=== PATIENT | male | born 1960 | race Hispanic/Latino ===

== ENCOUNTER → 2020-08-05 | Outpatient (CLI) | payer OTHER ==
--- NOTE | 2020-08-05 09:38 | Diagnostic Imaging Report ---
EXAMINATION: CHEST 2 VIEWS INDICATION: Dextrocardia, shortness of breath COMPARISON: None FINDINGS: LINES/TUBES:None LUNGS:The right lung is well-inflated. Left lung volume is low. Prominent elevation of left diaphragm. PLEURA:No pleural effusion or pneumothorax. MEDIASTINUM:Rightward orientation of the cardiac apex compatible with provided history of dextrocardia. BONES/SOFT TISSUES:No acute osseous injury. ABDOMEN:No free air under the diaphragm. IMPRESSION: No focal pneumonia or pulmonary edema. Prominent left hemidiaphragmatic elevation. Rightward orientation of the cardiac apex compatible with provided history of dextrocardia. Signed by: Hayder Arshad MD on 08/05/2020 9:34 AM
== END ==
LOC: RAD 09:09
PROVIDERS: ATTEND Internal Medicine Interventional Cardiology
DX: I20.0 Unstable angina (principal); Q24.0 Dextrocardia
CPT/HCPCS: 71046

== ENCOUNTER 2020-09-06 10:59 | Emergency (ER) | payer OTHER ==
[~2020-09-06] VITALS: Ht 162.6 cm; Wt 103.9 kg
[2020-09-06] MEDS ORDERED: METFORMIN HCL1000 MG PO (11:21)
[2020-09-06] MEDS ORDERED: LOW DOSE ASPIRI81 MG PEG (11:21)
[2020-09-06] MEDS ORDERED: LIDOCAINE1 EACH TOP (11:21)
[2020-09-06] MEDS ORDERED: PRAVASTATIN SOD10 MG PO (11:21)
[2020-09-06] MEDS ORDERED: ENALAPRIL MALE2.5 MG PO (11:21)
--- NOTE | 2020-09-06 11:26 | Emergency Department Note ---
History of Present Illnes History of Present Illness Chief Complaint: Back Pain History of Present Illness This is a 60 year old male . Historian: Patient Arrival Mode: Car Past Medical/Family History Physician Review I have reviewed the patient's past medical and family history. Any updates have been documented here. Past Medical History Recent Fever: No Clinical Suspicion of Infectio: No New/Unexplained Change in Ment: No Past Medical History: Hypertension, Diabetes, Chronic Back Pain Past Surgical History: None Social History Physically hurt or threatened: No Review of Systems Review of Systems Constitutional: Reports no symptoms EENTM: Reports no symptoms Cardiovascular: Reports no symptoms Respiratory: Reports no symptoms Gastrointestinal: Reports no symptoms Genitourinary: Reports pain (L flank pain) Musculoskeletal: Reports no symptoms Integumentary: Reports no symptoms Neurological: Reports no symptoms Psychological: Reports no symptoms Endocrine: Reports no symptoms Hematological/Lymphatic: Reports no symptoms Physical Exam Related Data Allergies: Coded Allergies: No Known Allergies (Unverified , 09/06/20) Triage Vital Signs Vital Signs Date Time Temp Pulse Resp B/P (MAP) Pulse Ox O2 Delivery O2 Flow Rate FiO2 09/06/20 11:12 98.5 77 18 144/78 96 Room Air Vital signs reviewed: Yes Physical Exam CONSTITUTIONAL Constitutional: Present well-developed, Present well-nourished HENT HENT: Present normocephalic, Present atraumatic, Present oropharynx clear/moist, Present nose normal HENT L/R: Present left ext ear normal, Present right ext ear normal EYES Eyes: Reports PERRL, Reports conjunctivae normal NECK Neck: Present ROM normal PULMONARY Pulmonary: Present effort normal, Present breath sounds normal CARDIOVASCULAR Cardiovascular: Present regular rhythm, Present heart sounds normal, Present capillary refill normal, Present normal rate GASTROINTESTINAL Abdominal: Present soft, Present left CVA tenderness, Present other (LLQ) GENITOURINARY Genitourinary: Present exam deferred SKIN Skin: Present warm, Present dry MUSCULOSKELETAL Musculoskeletal: Present ROM normal NEUROLOGICAL Neurological: Present alert, Present oriented x 3, Present no gross motor or sensory deficits PSYCHOLOGICAL Psychological: Present mood/affect normal, Present judgement normal Assessment & Plan Reassessment Reassessment time: 12:43 Reassessment Pain very much improved Assessment & Plan Final Impression: (1) Left flank pain Depart Disposition: HOME, SELF-CARE Last Vital Signs Date Time Temp Pulse Resp B/P (MAP) Pulse Ox O2 Delivery O2 Flow Rate FiO2 09/06/20 11:12 98.5 77 18 144/78 96 Room Air Home Meds Reported Medications Aspirin (LOW DOSE ASPIRIN EC) 81 Mg Tablet.dr, 81 MG PEG DAILY 09/06/20 Pravastatin Sodium (PRAVASTATIN SODIUM) 10 Mg Tablet, 10 MG PO DAILY 09/06/20 Enalapril Maleate (ENALAPRIL MALEATE) 2.5 Mg Tablet, 3 TAB PO DAILY 09/06/20 Metformin Hcl (METFORMIN HCL) 1,000 Mg Tablet, 1000 MG PO DAILY 09/06/20 Lidocaine (Lidocaine) 1 Each Adh..patch, 1 PATCH TOP DAILY 09/06/20 EDEN TAYLOR DO Sep 06, 2020 11:26
[2020-09-06] MEDS ORDERED: KETOROLAC TROMETHAMINE 60 MG/2 ML VIAL IM ONE (11:30)
--- OUTSIDE RECORDS SUMMARY | 2020-09-06 11:34 | XMS REPORT | Continuity of Care Document ---
Author Author [facility] t Organization [facility] Address [address] [place] [address] Phone Unavailable Care Team Providers Care Enterprise Infrastructure Architect Name Role Phone YONI VERGARA Attphycamacho Unavailable Payers Payer Name Policy Type Policy Number Effective Date Expiration Date S ource Problems This patient has no known problems. Allergies, Adverse Reactions, Alerts Allergy Name Allergy Type Status Severity Reaction(s) Onset Date Inacti ve Date Treating Clinician Comments Source No Known Allergies DA Active U 2017-12-09 00:00:00 [facility] Medications This patient has no known medications. Procedures This patient has no known procedures. Results Test Description Test Time Test Comments Results Result Comments Source CHEST 2 VIEWS 2020-08-05 09:33:00 [facility] [address] [place] [address] Patient Name: JAGDISH SINGH JR MR #: [id number] : 1960 Age/Sex: 60/M Req #: [id number] Adm Physician: Ordered by: YONI VERGARA MD Report #: [id number] Location: [facility] Room/Bed: Procedure: [id number] DX/CHEST 2 VIEWS Exam Date: 08/05/20 Exam Time: 919 REPORT STATUS: Signed EXAMINATION: CHEST 2 VIEWS INDICATION: Dextrocardia, shortness of breath COMPARISON: None FINDINGS: LINES/TUBES:None LUNGS:The right lung is well-inflated. Left lung volume is low. Prominent elevation of left diaphragm. PLEURA:No pleural effusion or pneumothorax. MEDIASTINUM:Rightward orientation of the cardiac apex compatible with provided history of dextrocardia. BONES/SOFT TISSUES:No acute osseous injury. ABDOMEN:No free air under the diaphragm. IMPRESSION: No focal pneumonia or pulmonary edema. Prominent left hemidiaphragmatic elevation. Rightward orientation of the cardiac apex compatible with provided history of dextrocardia. Signed by: Mack Webster MD on 08/05/2020 9:34 AM Dictated By: MACK WEBSTER MD 3 Transcribed By: CHRIS on 08/05/20933 COPY TO: YONI VERGARA MD - CT ABD PELVIS W/O CONT 2019-05-04 22:10:00 N carlito: JAGDISH SINGH [facility] : 1960 Age/S: 58 / M [address] [facility] Unit #: [id number] Loc: [place] [address] Phys: Sheila Astorga MD Acct: [id number] Dis Date: Status: REG ER PHONE #: [phone] Exam Date: 05/04/2019 220 FAX #: [phone] Reason: LEFT FLANK PAIN EXAMS: CPT CODE: [id number] CT ABD PELVIS W/O CONT 28515 REASON FOR EXAM: LEFT FLANK PAIN EXAM ORDER DATE: 05/04/2019 9:24 PM Ordering M.DYousuf: Sheila Astorga MD PROCEDURE: - CT ABD PELVIS W/O CONT COMPARISON: FINDINGS: CT images of the abdomen and pelvis were obtained without IV and without oral contrast at 5mm. Dose modulation, iterative reconstruction, and/or weight based adjustment of the MA/KV was utilized to reduce the radiation dose to as low as reasonably achievable. The liver, spleen, and pancreas are grossly within normal limits. The gallbladder is partially contracted with small stones. The kidneys are within normal limits. The urinary bladder is unremarkable. The colon, small bowel, and stomach are within normal limits without evidence of obstruction. The appendix was not seen No evidence of free air or free fluid. IMPRESSION: Small ventral hernia slightly superior to the umbilicus with herniation of mesenteric fat and small bowel in the hernia sac. 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 Cholelithiasis. 1 cm lesion in the right lung base suggestive of noncalcified granuloma at 2210 Reported and signed by: Aguilar Dawson M.D. CC: Technologist:SHERRILL COELHO RT(R),CT CTDI: DLP: Trnscb Date/Time: 05/04/2019 (2209) [email or web address] Orig Print D/T: S: 05/04/2019 (9469) PAGE 1 Signed Report BASIC METABOLIC PANEL 2019-05-04 22:07:00 Test Item SODIUM (test code = NA) 136 mmol/L 135-148 N POTASSIUM (test code = K) 5.3 mmol/L 3.5-5.1 H CHLORIDE (test code = CL) 98 mmol/L 101-109 L CARBON DIOXIDE (test code = CO2) 35.7 mmol/L 21-32 H ANION GAP (test code = GAP) 8 mmol/L 10-20 L GLUCOSE (test code = GLU) 209 mg/dL 74-106 H BLOOD UREA NITROGEN (test code = BUN) 19 mg/dL 3-21 N GLOMERULAR FILTRATION RATE (test code = GFR) > 60 mL/min >=60 Estimated GFR by using Modified MDRD formula.Chronic kidney disease is defined as either kidney damageor GFR <60 mL/min/1.73 m2 for >3 months. CREATININE (test code = CREAT) 0.94 mg/dL 0.55-1.3 N BUN/CREATININE RATIO (test code = BUN/CREA) 20.2 10-20 H CALCIUM (test code = CA) 8.9 mg/dL 8.4-10.2 N HEPATIC FUNCTION [id number] 22:07:00* Test Item Value Reference Range Interpretation Comments TOTAL PROTEIN (test code = PROT) 6.8 g/dL 6.5-8.4 N ALBUMIN (test code = ALB) 3.3 g/dL 3.4-4.8 L GLOBULIN (test code = GLOB) 3.5 G/DL 1-10 N ALBUMIN/GLOBULIN RATIO (test code = A/G) 0.9 RATIO 0.75-1.50 N BILIRUBIN TOTAL (test code = BILT) 0.50 mg/dL 0.0-1.0 N BILIRUBIN DIRECT (test code = BILD) 0.10 mg/dL 0.0-0.30 N SGOT/AST (test code = AST) 13 U/L 6-32 N SGPT/ALT (test code = ALT) 26 U/L 12-78 N N ote: Change in REFERENCE RANGE due to new reagent method. ALKALINE PHOSPHATASE TOTAL (test code = ALKP) 62 U/L 38-126 N [id number] 22:07:00* Test Item Value Reference Range Interpretation Comments LIPASE (test code = LIP) 235 U/L 128-270 N BASIC METABOLIC [id number] 21:51:00* Test Item Value Reference Range Interpretation Comments SODIUM (test code = NA) 136 mmol/L 135-148 N POTASSIUM (test code = K) 5.3 mmol/L 3.5-5.1 H CHLORIDE (test code = CL) 98 mmol/L 101-109 L CARBON DIOXIDE (test code = CO2) 35.7 mmol/L 21-32 H ANION GAP (test code = GAP) 8 mmol/L 10-20 L GLUCOSE (test code = GLU) 209 mg/dL 74-106 H BLOOD UREA NITROGEN (test code = BUN) 19 mg/dL 3-21 N GLOMERULAR FILTRATION RATE (test code = GFR) > 60 mL/min >=60 Estimated GFR by using Modified MDRD formula.Chronic kidney disease is defined as either kidney damageor GFR <60 mL/min/1.73 m2 for >3 months. CREATININE (test code = CREAT) 0.94 mg/dL 0.55-1.3 N BUN/CREATININE RATIO (test code = BUN/CREA) 20.2 10-20 H CALCIUM (test code = CA) 8.9 mg/dL 8.4-10.2 N HEPATIC FUNCTION [id number] 21:51:00* Test Item Value Reference Range Interpretation Comments TOTAL PROTEIN (test code = PROT) gram/dL 6.4-8.2 ALBUMIN (test code = ALB) g/dL 3.4-5.0 GLOBULIN (test code = GLOB) g/dL 2.7-4.2 ALBUMIN/GLOBULIN RATIO (test code = A/G) 0.75-1.50 BILIRUBIN TOTAL (test code = BILT) mg/dL 0.2-1.2 BILIRUBIN DIRECT (test code = BILD) mg/dL 0.0-0.20 SGOT/AST (test code = AST) IUnit/L 15-37 SGPT/ALT (test code = ALT) U/L 10-69 ALKALINE PHOSPHATASE TOTAL (test code = ALKP) IUnit/L 45-117 [id number] 21:51:00* Test Item Value Reference Range Interpretation Comments LIPASE (test code = LIP) Unit/L 144-286 URINALYSIS [id number] 21:44:00* Test Item Value Reference Range Interpretation Comments UA COLOR (test code = COLU) YELLOW YELLOW UA APPEARANCE (test code = APPU) CLEAR CLEAR UA GLUCOSE DIPSTICK (test code = DGLUU) 50 (Trace) mg/dL NEGATIVE A UA BILIRUBIN DIPSTICK (test code = BILU) NEGATIVE mg/dL NEGATIVE UA KETONE DIPSTICK (test code = KETU) neg mg/dL NEGATIVE UA SPECIFIC GRAVITY (test code = SGU) 1.005 1.001-1.035 UA BLOOD DIPSTICK (test code = HARLEY) 10 (Trace) Qamar/uL NEGATIVE A UA PH DIPSTICK (test code = MIRI) 6.5 5.0-8.0 UA PROTEIN DIPSTICK (test code = PROU) 100 (2+) mg/dL Neg-15 A UA UROBILINIOGEN DIPSTICK (test code = URO) norm mg/dL 0.0-0.2 UA NITRITE DIPSTICK (test code = CHARBEL) NEGATIVE NEGATIVE UA LEUKOCYTE ESTERASE DIPSTICK (test code = LEUU) neg uL NEGA TIVE UA WBC (test code = WBCU) NONE SEEN per HPF 0-5 UA RBC (test code = RBCU) 0-2 per HPF 0-5 UA EPITHELIAL CELLS (test code = EPIU) None seen per HPF Few UA BACTERIA (test code = BACU) FEW per HPF NONE Urine Source? Clean CatchDRUGS OF ABUSE SCREEN [id number] 21:44:00* Test Item Value Reference Range Interpretation Comments URN COCAINE (test code = COCAURN) NEGATIVE NEGATIVE URN CANNABINOIDS (test code = CANNABURN) NEGATIVE NEGATIVE URN AMPHETAMINE (test code = AMPHETURN) NEGATIVE NEGATIVE URN BARBITURATE (test code = BARBITURN) NEGATIVE NEGATIVE URN BENZODIAZEPINE (test code = BENZOURN) NEGATIVE NEGATIVE URN OPIATES (test code = OPIATURN) NEGATIVE NEGATIVE URN PHENCYCLIDINE (PCP) (test code = PHENCURN) NEGATIVE NEGATIV E Urine Source? Clean CatchURINALYSIS [id number] 21:40:00* Test Item Value Reference Range Interpretation Comments UA COLOR (test code = COLU) YELLOW YELLOW UA APPEARANCE (test code = APPU) CLEAR CLEAR UA GLUCOSE DIPSTICK (test code = DGLUU) 50 (Trace) mg/dL NEGATIVE A UA BILIRUBIN DIPSTICK (test code = BILU) NEGATIVE mg/dL NEGATIVE UA KETONE DIPSTICK (test code = KETU) neg mg/dL NEGATIVE UA SPECIFIC GRAVITY (test code = SGU) 1.005 1.001-1.035 UA BLOOD DIPSTICK (test code = HARLEY) 10 (Trace) Qamar/uL NEGATIVE A UA PH DIPSTICK (test code = MIRI) 6.5 5.0-8.0 UA PROTEIN DIPSTICK (test code = PROU) 100 (2+) mg/dL Neg-15 A UA UROBILINIOGEN DIPSTICK (test code = URO) norm mg/dL 0.0-0.2 UA NITRITE DIPSTICK (test code = CHARBEL) NEGATIVE NEGATIVE UA LEUKOCYTE ESTERASE DIPSTICK (test code = LEUU) neg uL NEGA TIVE UA WBC (test code = WBCU) per HPF 0-5 UA RBC (test code = RBCU) per HPF 0-5 UA EPITHELIAL CELLS (test code = EPIU) per HPF Few UA BACTERIA (test code = BACU) per HPF NONE Urine Source? Clean CatchDRUGS OF ABUSE SCREEN [id number] 21:40:00* Test Item Value Reference Range Interpretation Comments URN COCAINE (test code = COCAURN) NEGATIVE URN CANNABINOIDS (test code = CANNABURN) NEGATIVE URN AMPHETAMINE (test code = AMPHETURN) NEGATIVE URN BARBITURATE (test code = BARBITURN) NEGATIVE URN BENZODIAZEPINE (test code = BENZOURN) NEGATIVE URN OPIATES (test code = OPIATURN) NEGATIVE URN PHENCYCLIDINE (PCP) (test code = PHENCURN) NEGATIV E Urine Source? Clean CatchCBC W/O [id number] 21:39:00* Test Item Value Reference Range Interpretation Comments WHITE BLOOD CELL (test code = WBC) 7.1 K/mm3 4.5-12.5 N RED BLOOD CELL (test code = RBC) 6.51 mill/mm3 4.0-5.8 H HEMOGLOBIN (test code = HGB) 18.6 gram/dL 13.0-17.5 H HEMATOCRIT (test code = HCT) 59.5 % 42.0-52.0 H MEAN CELL VOLUME (test code = MCV) 91.4 fL 80-98 N MEAN CELL HGB (test code = MCH) 28.6 picogram 27.0-33.0 N MEAN CELL HGB CONCETRATION (test code = MCHC) 31.3 gram/dL 33.0-36. 0 L RED CELL DISTRIBUTION WIDTH (test code = RDW) 13.4 % 11.6-16. 2 N RED CELL DISTRIBUTION WIDTH SD (test code = RDW-SD) 45.9 fL 37 .0-51.0 N PLATELET COUNT (test code = PLT) 162 K/mm3 150-450 N MEAN PLATELET VOLUME (test code = MPV) 9.5 fL 6.7-11.0 N
[2020-09-06 12:12] LABS: BILIRUBIN,URINE NEGATIVE (NEGATIVE); CLARITY,URINE CLEAR (CLEAR); COLOR,URINE YELLOW (YELLOW); KETONES,URINE NEGATIVE (NEGATIVE); LEUKOCYTE ESTERASE ,URINE NEGATIVE (NEGATIVE); NITRITE,URINE NEGATIVE (NEGATIVE); PROTEIN,URINE DIPSTICK 2+ (NEGATIVE); URINE UROBILINOGEN 1 mg/dL (0.2 - 1)
[2020-09-06 12:24] LABS: BACTERIA,URINE MODERATE /HPF; EPITHELIAL CELLS,URINE RARE /LPF; RBC,URINE 0-5 /HPF (0-5); WBC,URINE (MAN) 0-5 /HPF (0-5)
--- NOTE | 2020-09-06 13:44 | Diagnostic Imaging Report ---
EXAM: CT of the abdomen and pelvis without intravenous contrast HISTORY: ^L flank pain ^[id number] ^1202 COMPARISON: None TECHNIQUE: Abdomen and pelvis were scanned utilizing a multidetector helical scanner. Coronal and sagittal reformations were obtained. DOSE REDUCTION: The examination was performed according to the departmental dose-optimization program, which includes automated exposure control, adjustment of the mA and/or kV according to patient size and/or use of iterative reconstruction technique. FINDINGS: THE ABSENCE OF INTRAVENOUS CONTRAST DECREASES THE SENSITIVITY FOR DETECTION OF FOCAL LESIONS AND VASCULAR PATHOLOGY. Limited exam due to incomplete imaging of the abdominal contents high in the left thorax. LINES and TUBES: None. LOWER THORAX: Elevated left hemidiaphragm. HEPATOBILIARY: Unremarkable. GALLBLADDER: Punctate stone. SPLEEN: Unremarkable. PANCREAS: Unremarkable. ADRENALS: Unremarkable. KIDNEYS/URETERS: Unremarkable. GI TRACT: Unremarkable. PELVIC ORGANS/BLADDER: Unremarkable. LYMPH NODES: Unremarkable VESSELS: Vascular calcifications. PERITONEUM / RETROPERITONEUM: No free air or fluid. 1.6 cm soft tissue density between the pancreatic tail, kidney and spleen. BONES: Bilateral L5 pars defects. SOFT TISSUES: Small anterior abdominal wall broad-based hernia contains a loop of small bowel, without evidence of strangulation. IMPRESSION: The absence of intravenous contrast decreases the sensitivity for detection of focal lesions and vascular pathology. Limited exam as described above. 1. No findings suspicious patient's left flank plain. 2. Indeterminate soft tissue density between the pancreatic tail, kidney and spleen. Differential diagnosis includes splenule and focal pancreatic lesion. Recommend nonemergent multiphase CT or MRI when feasible. 3. Additional findings as above. Signed by: Manas Staton MD on 09/06/2020 1:40 PM
== END 2020-09-06 14:01 | disposition home or self-care (01) ==
LOC: ER 11:31
DX: M54.5 Low back pain (principal); R10.32 Left lower quadrant pain; G89.29 Other chronic pain; I10 Essential (primary) hypertension; E11.9 Type 2 diabetes mellitus without complications
CPT/HCPCS: 74176; 81001; 99283; J1885

== ENCOUNTER → 2020-10-11 | Day surgery (SDC) | payer OTHER ==
[2020-10-06 12:31] LABS: BASOPHILS # (AUTO) 0.1 (0.0-0.1); BASOPHILS % 0.9 % (0.0-1.0); EOSINOPHILS # (AUTO) 0.3 (0.0-0.4); EOSINOPHILS % 4.1 % (0.0-6.0); HEMATOCRIT 46.6 % (38.2-49.6); HEMOGLOBIN 15.4 g/dL (14.0-18.0); LYMPHOCYTES # (AUTO) 1.6 (1.0-3.2); MEAN CORPUSCULAR HEMOGLOBIN 29.6 pg (28-32); MEAN CORPUSCULAR VOLUME 89.6 fL (81-99); MONOCYTES # (AUTO) 0.6 (0.2-0.8); MONOCYTES % 7.6 % (4.4-11.3); NEUTROPHILS # (AUTO) 5.1 (2.1-6.9); PLATELET COUNT 168 x10e3/uL (140-360); RED CELL DISTRIBUTION WIDTH 12.6 % (11.7-14.4)
[2020-10-06 12:55] LABS: ALANINE AMINOTRANSFERASE 15 IU/L (0-55); ALBUMIN 3.7 g/dL (3.5-5.0); ALBUMIN/GLOBULIN RATIO 1.1 (0.8-2.0); ALKALINE PHOSPHATASE 62 IU/L (40-150); ANION GAP 11.4 mmol/L (8-16); BLOOD UREA NITROGEN 18 mg/dL (7-26); BUN/CREATININE RATIO 21 (6-25); CALCIUM 8.9 mg/dL (8.4-10.2); CARBON DIOXIDE 31 mmol/L (22-29); CHLORIDE 101 mmol/L (98-107); CREATININE, SERUM 0.87 mg/dL (0.72-1.25); EST GLOMERULAR FILTRATION RATE > 60 ML/MIN (60-); GLUCOSE 191 mg/dL (74-118); POTASSIUM 4.4 mmol/L (3.5-5.1); SODIUM 139 mmol/L (136-145)
[~2020-10-11] VITALS: Ht 162.6 cm; Wt 104.8 kg
[2020-10-11] VITALS (11 sets, daily range): BP systolic 119–140; BP diastolic 70–85
[~2020-10-11] MED LIST: ALPRAZOLAM 0.5 MG TAB ONE; DIPHENHYDRAMINE HCL 25 MG CAP ONE; ENALAPRIL MALE2.5 MG PO; FENTANYL CITRATE/PF 100MCG/2 ML INJ ONE; HEPARIN SOD/SOD CHLORIDE 2,000 ML ONE; IOPAMIDOL 370 MG/ML 200 ML INFUS..BTL INJ ONE; LIDOCAINE HCL 2% LOCAL 20 ML VIAL ONE; LIDOCAINE1 EACH TOP; LOW DOSE ASPIRI81 MG PO; METFORMIN HCL1000 MG PO; MIDAZOLAM HCL 2 MG/2 ML VIAL ONE; PRAVASTATIN SOD10 MG PO; SODIUM CHLORIDE 0.9% 1000ML 1,000 ML ONE; VERAPAMIL HCL 2.5 MG/ML 2 ML VIAL ONE; VICTOZA 3-0.6 MG/0.1 SC
== END | disposition home or self-care (01) ==
LOC: CATH LAB 16:25
PROVIDERS: ATTEND Internal Medicine Interventional Cardiology
DX: I25.119 Atherosclerotic heart disease of native coronary artery with unspecified angina pectoris (principal); Q24.0 Dextrocardia; E11.9 Type 2 diabetes mellitus without complications; Z01.812 Encounter for preprocedural laboratory examination; Z20.828 Contact with and (suspected) exposure to other viral communicable diseases; Z79.82 Long term (current) use of aspirin; Z79.84 Long term (current) use of oral hypoglycemic drugs
CPT/HCPCS: 36415 ×2; 76937; 80053; 82948; 85025; 93454; C1887; C1894; J2001; J2250; J3010; J7030; Q9967; U0002